=== PATIENT | female | born 1985 | race Caucasian/White ===

== ENCOUNTER 2023-07-04 12:51 | Emergency (ER) | payer BC, OTHER ==
[~2023-07-04] VITALS: Ht 165.1 cm; Wt 69.1 kg
[2023-07-04 13:09] VITALS: BP 116/69; PULSE 89; RESP 18; TEMP 97.5; O2SAT 96
[2023-07-04 13:33] VITALS: O2SAT 96
[2023-07-04] MEDS: ACETAMINOPHEN 325 MG TAB PO ONE (13:39)
[2023-07-04 14:45] VITALS: BP 123/62; PULSE 88; RESP 18; TEMP 98; O2SAT 99
== END 2023-07-04 14:45 | disposition home or self-care (01) ==
LOC: MED 12:51
DX: R07.89 Other chest pain (principal)
CPT/HCPCS: 71101; 99283